=== PATIENT | female | born 1950 | race Caucasian/White ===

== ENCOUNTER → 2017-11-18 21:36 | Outpatient (CLI) | payer MEDICARE, OTHER | END | disposition home or self-care (01) | LOC: D.MAMMO 15:45 | DX: Z12.31 Encounter for screening mammogram for malignant neoplasm of breast (principal) ==

== ENCOUNTER 2017-12-30 08:00 | Outpatient (CLI) | payer MEDICARE, OTHER | END 2017-12-30 09:00 | disposition home or self-care (01) | LOC: D.MAMMO 08:00 | DX: R92.8 Other abnormal and inconclusive findings on diagnostic imaging of breast (principal) ==

== ENCOUNTER → 2018-07-02 16:22 | Outpatient (CLI) | payer MEDICARE, OTHER | END | disposition home or self-care (01) | LOC: D.MAMMO 10:00 | DX: R92.8 Other abnormal and inconclusive findings on diagnostic imaging of breast (principal) ==